=== PATIENT | male | born 1965 | race Caucasian/White ===

== ENCOUNTER 2019-08-05 10:26 | Emergency (ER) | payer OTHER ==
[~2019-08-05] VITALS: Ht 180.3 cm; Wt 86.2 kg
[~2019-08-05 10:26] MED LIST: KETO10TA2 PO; PROTONIX40 MG; TRICOR48 MG; ZOCOR40 MG
[2019-08-05] MEDS ORDERED: PROTONIX40 MG PO (11:34)
== END 2019-08-05 15:10 | disposition home or self-care (01) ==
LOC: ER 10:26
DX: R42 Dizziness and giddiness (principal)